=== PATIENT | male | born 1965 | race Two or more races ===

== ENCOUNTER 2023-04-24 09:16 | Emergency (ER) | payer OTHER ==
[~2023-04-24] VITALS: Ht 152.4 cm; Wt 90.7 kg
== END 2023-04-24 16:44 | disposition home or self-care (01) ==
LOC: ER 09:16
DX: I10 Essential (primary) hypertension (principal); Z56.6 Other physical and mental strain related to work; R42 Dizziness and giddiness; Z20.822 Contact with and (suspected) exposure to COVID-19